=== PATIENT | male | born 1940 | race Caucasian/White ===

== ENCOUNTER → 2023-10-04 12:33 | Outpatient (CLI) | payer MEDICARE, OTHER, SELFPAY ==
--- NOTE | 2023-10-04 12:41 | DI.RAD.S_ITS ---
PROCEDURE: XR FOOT RT MIN 3V INDICATIONS: IRITATED RIGHT TOE TECHNIQUE: 3 views of the foot were acquired. COMPARISON: None. FINDINGS: Bones: No fractures or dislocations. No suspicious bony lesions. 1st MTP joint space narrowing with mild osteophytes. Laminated calcification within the plantar fascia and distal Achilles tendon. Soft tissues: No tibiotalar joint effusion. Achilles tendon appears normal. 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 Dictated by: Lexx Dumont M.D. on 10/04/2023 at 15:54 Approved by: Lexx Dumont M.D. on 10/04/2023 at 15:55
== END ==
PROVIDERS: Family Provider Family Medicine; PCP Physician Assistant Medical; Referring Provider Podiatrist; Visit Provider Podiatrist
DX: M19.071 Primary osteoarthritis, right ankle and foot (principal); M65.871 Other synovitis and tenosynovitis, right ankle and foot
CPT/HCPCS: 73630

== ENCOUNTER 2024-10-23 04:40 | Emergency (ER) | payer MEDICARE, OTHER, SELFPAY ==
[2024-10-23] VITALS (9 sets, daily range): BP systolic 136–167; BP diastolic 66–82; PULSE 40–67; RESP 17–20; TEMP 36.7; O2SAT 95–97; BMI 25.0
--- NOTE | 2024-10-23 04:47 | EKG_ITS ---
[place] [id number] [place] [id number] Test Date: 2024-10-23 Pat Name: Anthony Hernandez Department: [facility] Room: Gender: Male Metal Inspector: LEONEL : 1940 Requested By: Order Number: [id number] Reading MD: Raffaele Hernandez Measurements Intervals [place] Rate: 51 P: NV: QRS: 47 QRSD: 84 T: 50 QT: 440 QTc: 405 Interpretive Statements Atrial fibrillation with slow ventricular response with premature ventricular or aberrantly conducted complexes Anteroseptal infarct , age undetermined Electronically Signed On 10-25-2024 20:02:34 PST by Raffaele Hernandez
--- NOTE | 2024-10-23 04:52 | DI.RAD.S_ITS ---
PROCEDURE: XR CHEST 1V INDICATIONS: chest pain TECHNIQUE: One view of the chest was acquired. COMPARISON: None. FINDINGS: Surgical changes and devices: None. Lungs and pleura: Lungs are clear. No pleural effusions or pneumothorax. Mediastinum: Mediastinal contours appear normal. Heart size is enlarged. Bones and chest wall: No suspicious bony lesions. Overlying soft tissues appear unremarkable. IMPRESSION: No acute pulmonary process. Dictated by: Kenya Ashley M.D. on 10/23/2024 at 8:22 Approved by: Kenya Ashley M.D. on 10/23/2024 at 8:23
[2024-10-23 05:06] LABS: Add Manual Diff / Slide Review NO; Basophils Absolute Auto 0 /uL (0-100); Basophils Percent Auto 0.4 % (0-2); Eosinophils Absolute Auto 400 /uL (0-450); Eosinophils Percent Auto 6.4 % (2-4); Hematocrit 43.2 % (41-53); Hemoglobin 14.9 g/dL (13.5-17.5); Lymphocytes Absolute Auto 1600 /uL (1100-4500); Lymphocytes Percent Auto 27.6 % (25-40); Mean Corpuscular HGB Conc 34.4 % (30-36); Mean Corpuscular Hemoglobin 35.3 PG (26-34); Mean Corpuscular Volume 102.6 fL (80-100); Monocytes Absolute Auto 500 /uL (0-900); Monocytes Percent Auto 8.3 % (3-14); Neutrophils Absolute Auto 3300 /uL (1500-7000); Neutrophils Percent Auto 57.3 % (50-75); Platelet Count 180 X10^3/uL (150-400); Red Blood Cell Count 4.21 X10^6/uL (4.5-5.9); Red Cell Distribution Width 15.1 % (11.6-14.8); White Blood Cell Count 5.8 X10^3/uL (4.5-11.0)
--- NOTE | 2024-10-23 05:09 | ED_ITS ---
HPI - General Adult General Chief complaint: Arrhythmia/Palpitations Stated complaint: heart flutters Time Seen by Provider: 10/23/24 04:52 Source: patient and family Mode of arrival: Ambulatory History of Present Illness HPI narrative: 84-year-old male with history of atrial fibrillation, recently wore monitor tech ordered from his centrifugal machine tender at [facility] (can not name the centrifugal machine tender) and was told he should be getting a pacemaker, to be scheduled, no set date at this time, felt irregular heartbeat sensation tonight. No syncope or near-syncope symptoms, no associated nausea or vomiting, no associated diaphoresis. No discomfort to his arms, jaw, neck, legs, back. Symptoms resolved without specific treatment, only seconds in duration of time. Related Data Home Medications Medication Instructions Recorded Confirmed [CO-Q-10] 1 tab PO QDAY ##0 12/20/12 [METHOTREXATE] ##0 12/20/12 [MULTIVITAMIN] 2 tabs PO QDAY ##0 12/20/12 [VITAMIN A] 1 tab PO QDAY ##0 12/20/12 ibuprofen 200 mg tablet 200 mg PO ##0 12/20/12 tamsulosin 0.4 mg capsule (Flomax) 0.4 mg PO QDAY ##0 12/20/12 Previous Rx's Medication Instructions Recorded amoxicillin 875 mg tablet 875 mg PO BID dental infection 10 10/23/24 days #20 tabs doxycycline hyclate 100 mg capsule 100 mg PO BID #20 caps 10/23/24 Allergies Allergy/AdvReac Type Severity Reaction Status Date / Time No Known Drug Allergies Allergy Verified 10/23/24 04:57 Patient History Social History Smoking Status: Never smoker Smoking Status: Never smoker Exam Narrative Exam Narrative: GENERAL: Well-developed patient, in mild distress. HEAD: Atraumatic. Normocephalic. EYES: Pupils equal round and reactive. Extraocular motions intact. No scleral icterus. No injection or drainage. ENT: Nose without bleeding, purulent drainage. Throat without erythema, tonsillar hypertrophy or exudate. Airway patent. NECK: Trachea midline. Non tender CARDIOVASCULAR: Slow rate, irregular rhythm, without murmurs, gallops, or rubs. RESPIRATORY: Clear to auscultation. Breath sounds equal bilaterally. No wheezes, rales, or rhonchi. GASTROINTESTINAL: Abdomen soft, non-tender, nondistended. EXTREMITIES: No edema or joint tenderness. BACK: Nontender without deformity or crepitance. No flank tenderness. NEURO: AOx3. Motor functions grossly nonfocal SKIN: No rash or erythema of visible areas Initial Vital Signs Initial Vital Signs: Vital Signs Temperature 98.0 F 10/23/24 04:52 Pulse Rate 67 10/23/24 04:52 Respiratory Rate 17 10/23/24 04:52 Blood Pressure 136/82 10/23/24 04:52 Pulse Oximetry 96 10/23/24 04:52 Oxygen Delivery Method Room Air 10/23/24 04:52 Course Orders Ordered: Discontinued Medications Amoxicillin (Amoxicillin 250 Mg Capsule) 1,000 mg PO NOW ONE Stop: 10/23/24 06:50 Last Admin: 10/23/24 07:03 Dose: 1,000 mg Documented By: MAZIN Doxycycline Hyclate (Doxycycline Hyclate 100 Mg Tablet) 100 mg PO NOW ONE Stop: 10/23/24 06:50 Last Admin: 10/23/24 07:03 Dose: 100 mg Documented By: MAZIN Vital Signs Vital signs: Vital Signs - 8 hr 10/23/24 04:52 Temperature 98.0 F Pulse Rate 67 Respiratory Rate 17 Blood Pressure 136/82 Pulse Oximetry 96 Oxygen Delivery Method Room Air Medical Decision Making Lab Data Lab results reviewed: Yes I reviewed the patient's lab results. Lab results narrative: White blood cell count 5800, hemoglobin 14.9, platelets adequate. Basic metabolic panel unremarkable. Liver functions unremarkable, lipase normal. 10/23/24 04:50 10/23/24 04:50 Labs: Lab Results 10/23/24 10/23/24 Range/Units 04:50 06:50 WBC 5.8 (4.5-11.0) X10^3/uL RBC 4.21 L (4.5-5.9) X10^6/uL Hgb 14.9 (13.5-17.5) g/dL Hct 43.2 (41-53) % MCV 102.6 H (80-100) fL MCH 35.3 H (26-34) PG MCHC 34.4 (30-36) % RDW 15.1 H (11.6-14.8) % Plt Count 180 (150-400) X10^3/uL Neut % (Auto) 57.3 (50-75) % Lymph % (Auto) 27.6 (25-40) % Page % (Auto) 8.3 (3-14) % Eos % (Auto) 6.4 H (2-4) % Baso % (Auto) 0.4 (0-2) % Neut # (Auto) 3300 (3148-6615) /uL Lymph # (Auto) 1600 (3984-7823) /uL Page # (Auto) 500 (0-900) /uL Eos # (Auto) 400 (0-450) /uL Baso # (Auto) 0 (0-100) /uL Sodium 139 (137-145) mmol/L Potassium 4.1 (3.4-5.1) mmol/L Chloride 109 H (98-107) mmol/L Carbon Dioxide 23 (22-32) mmol/L BUN 18 (9-20) mg/dL Creatinine 0.75 (0.66-1.25) mg/dL Estimated GFR > 60 (>60) mL/min BUN/Creatinine Ratio 24.0 H (6-22) Glucose 96 (80-110) mg/dL Calcium 9.0 (8.4-10.2) mg/dL Magnesium 2.0 (1.6-2.3) mg/dL Total Bilirubin 0.9 (0.2-1.3) mg/dL AST 39 (17-59) IU/L ALT 25 (<50) IU/L Alkaline Phosphatase 119 (38-126) U/L Total Creatine Kinase 60 (55-170) U/L Troponin I 0.014 0.014 (0.01-0.034) ng/mL Total Protein 7.0 (6.3-8.2) g/dL Albumin 4.2 (3.5-5.0) g/dL Globulin 2.8 (1.7-4.1) g/dL Albumin/Globulin Ratio 1.5 (1.0-2.8) Lipase 47 (23-300) U/L ECG Data Attestation: I personally reviewed and interpreted this ECG as follows: Interpretation: Atrial fibrillation with ventricular rate 51 slow, no obvious ST segment elevation or depression changes. PVC noted. QRS 84, QTC 405. MDM Narrative Medical decision making narrative: 84-year-old male with history of atrial fibrillation had palpitation like symptoms for seconds duration only, that he was concerned about. No associated shortness of breath or diaphoresis, no syncope or near-syncope symptoms. No heart racing sensation. Prior monitor tech, awaiting pacemaker placement procedure still to be scheduled. Afebrile, sirs screen negative. Screening EKG shows atrial fibrillation with rate 50s noted. Chest x-ray. Impressions: Left lower lobe infiltrate. Follow up chest radiograph after appropriate treatment to document resolution.? See teleradiology report Oral antibiotics amoxicillin and doxycycline given for community acquired pneumonia treatment, no fever, SIRS screen negative, no hypoxia, further antibiotics sent to pharmacy for pneumonia treatment course. Initial troponin negative, await interval troponin. Repeat troponin also negative. Discharged home, follow up with his [facility] cardiologists advised, for scheduling of pacemaker as planned. Further antibiotics amoxicillin/doxycycline for community-acquired pneumonia coverage. Recheck with regular provider advised early next week. Return precautions discussed. Home with family Discharge Plan Departure Patient Disposition: Home Clinical Impression: Heart palpitations, History of atrial fibrillation, Bradycardia, Pneumonia Instructions: DI for Pneumonia -- Adult, DI for Atrial Fibrillation, DI for Palpitations Activity Restrictions/Additional Instructions: History of atrial fibrillation, recent heart monitor apparently showed low heart rate concerns, with recommendation for pacemaker, pacemaker placement procedure still to be scheduled. Today having brief episode of palpitation irregular heart sensation, without discomfort or shortness of breath or passing out. No fever on triage, unremarkable vital signs. You did on the monitor and EKG have atrial fibrillation, not with a fast heart rate but with a relatively slow heart rate. Your blood pressure was unremarkable. No unusual heart rhythms while on the monitor in the emergency department. Serial blood tests not suggestive of heart attack, electrolyte blood tests unremarkable. On screening chest x-ray the radiologist's believes that you have an infiltrate in your left lower lung, possible left lower lung pneumonia. First antibiotics oral amoxicillin and oral doxycycline given in the emergency department, further prescription sent to your pharmacy. Please take antibiotics as prescribed. Follow up with your centrifugal machine tender as planned, for possible pacemaker placement. Take the antibiotics above as directed. Drink plenty of fluids. Recheck with your regular doctor in the next few days to reassess your pneumonia and listen to your lungs. Return earlier to this/nearest emergency department for any change worsening symptoms or any concerns prior Prescriptions: New amoxicillin 875 mg tablet 875 mg PO BID 10 Days Qty: 20 0RF doxycycline hyclate 100 mg capsule 100 mg PO BID Qty: 20 0RF No Action ibuprofen 200 MG tablet 200 mg PO Qty: 0 [METHOTREXATE] Qty: 0 tamsulosin [Flomax] 0.4 MG capsule,extended release 24hr 0.4 mg PO QDAY Qty: 0 [MULTIVITAMIN] 2 tabs PO QDAY Qty: 0 [VITAMIN A] 1 tab PO QDAY Qty: 0 [CO-Q-10] 1 tab PO QDAY Qty: 0 Referrals: Senait James PA-C [Primary Care Provider] - Stand Alone Forms: Patient Portal/API/Survey
[2024-10-23 05:19] LABS: Alanine Aminotransferase 25 IU/L (<50); Albumin 4.2 g/dL (3.5-5.0); Albumin Globulin Ratio 1.5 (1.0-2.8); Alkaline Phosphatase 119 U/L (38-126); Aspartate Aminotransferase 39 IU/L (17-59); Bilirubin Total 0.9 mg/dL (0.2-1.3); Blood Urea Nitrogen 18 mg/dL (9-20); Carbon Dioxide 23 mmol/L (22-32); Chloride 109 mmol/L (98-107); Creatine Kinase 60 U/L (55-170); Estimated Glomerular Filt Rate > 60 mL/min (>60); Globulin 2.8 g/dL (1.7-4.1); Glucose 96 mg/dL (80-110); HEMOLYSIS 29 (0-50); Lipase 47 U/L (23-300); Potassium 4.1 mmol/L (3.4-5.1); Sodium 139 mmol/L (137-145)
[2024-10-23 05:30] LABS: Troponin I 0.014 ng/mL (0.01-0.034)
[2024-10-23] MEDS: DOXYCYCLINE HYCLATE 100 MG TABLET PO (07:03)
[2024-10-23] MEDS: AMOXICILLIN 250 MG CAPSULE 1000 MG PO (07:03)
[2024-10-23 07:35] LABS: Troponin I 0.014 ng/mL (0.01-0.034)
== END 2024-10-23 08:14 | disposition home or self-care (01) ==
PROVIDERS: Emergency Provider Emergency Medicine; Family Provider Family Medicine; PCP Physician Assistant Medical
DX: R00.2 Palpitations (principal); J18.9 Pneumonia, unspecified organism; I48.91 Unspecified atrial fibrillation; R00.1 Bradycardia, unspecified
CPT/HCPCS: 36415; 71045; 80053; 82550; 83690; 83735; 84484; 85025; 93005; 99283; 99284